=== PATIENT | male | born 1960 | race Caucasian/White ===

== ENCOUNTER 2016-06-12 09:13 | Outpatient (CLI) | payer OTHER ==
[2016-06-12] MEDS ORDERED: BUFFERED LIDOCAINE 10 ML SYRINGE IU ONE (16:31)
== END 2016-06-12 09:14 | disposition home or self-care (01) ==
DX: D44.0 Neoplasm of uncertain behavior of thyroid gland (principal)

== ENCOUNTER 2017-08-06 14:23 | Outpatient (CLI) | payer OTHER ==
--- NOTE | 2017-08-06 16:21 | Ultrasound Report ---
THYROID ULTRASOUND: 08/06/2017 CLINICAL INDICATION: Thyroid mass. COMPARISON: 04/08/2016 TECHNIQUE: Real-time scanning was performed with metals sales representative static images obtained. FINDINGS: The right lobe measures 5.2 x 1.6 x 1.4 cm, and the left lobe measures 6.8 x 3.0 x 2.8 cm. The isthmus measures 3 mm. A 4.2 x 3.9 x 2.9 cm heterogeneous nodule is again noted in the left lobe, likely not significantly changed from previous given differences in technique. Tiny cyst is incidentally noted in the right lobe. No adenopathy is seen. IMPRESSION: ALLOWING FOR DIFFERENCES IN TECHNIQUE, LIKELY NO SIGNIFICANT INTERVAL CHANGE IN SIZE OF THE HETEROGENEOUS NODULE IN THE LEFT LOBE OF THE THYROID. TD: 08/06/2017 16:20
== END 2017-08-06 14:24 | disposition home or self-care (01) ==
LOC: DI 14:23
PROVIDERS: ATTEND Family Medicine
DX: E04.9 Nontoxic goiter, unspecified (principal)
CPT/HCPCS: 76536

== ENCOUNTER 2017-12-30 20:07 | Emergency (ER) | payer OTHER ==
--- NOTE | 2017-12-30 20:22 | ED Physician Documentation ---
PD HPI CHEST PAIN - Stated complaint Stated Complaint: CP - Chief complaint Chief Complaint: Cardiac - History obtained from History obtained from: Patient PD PAST MEDICAL HISTORY - Past Medical History Cardiovascular: Arrhythmia GI: GERD Musculoskeletal: Osteoarthritis - Past Surgical History Past Surgical History: Yes General: Other - Present Medications Home Medications: Ambulatory Orders Medication Instructions Recorded Confirmed Pantoprazole [Protonix] 07/01/15 - Allergies Allergies/Adverse Reactions: Allergies Allergy/AdvReac Type Severity Reaction Status Date / Time No Known Drug Allergies Allergy Verified 12/30/17 20:15 - Social History Does the pt smoke?: No Smoking Status: Never smoker Does the pt drink ETOH?: No Does the pt have substance abuse?: No - Immunizations Immunizations are current?: Yes - POLST Patient has POLST: No Results - Vitals Vitals: Vital Signs - 24 hr 12/30/17 20:13 Temperature 36.5 C Heart Rate 86 Respiratory 16 Rate Blood Pressure 168/84 H O2 Saturation 99 Oxygen O2 Source Room air PD MEDICAL DECISION MAKING - Sepsis Event Vital Signs: Vital Signs - 24 hr 12/30/17 20:13 Temperature 36.5 C Heart Rate 86 Respiratory 16 Rate Blood Pressure 168/84 H O2 Saturation 99 Oxygen O2 Source Room air
[2017-12-30 20:42] LABS: BASOPHILS # (AUTO) 0.1 10^3/uL (0.0-0.1); BASOPHILS % (AUTO) 0.7 %; EOSINOPHILS # (AUTO) 0.1 10^3/uL (0.0-0.7); EOSINOPHILS % (AUTO) 0.8 %; HGB - HEMOGLOBIN 14.4 g/dL (14.0-18.0); LYMPHOCYTES # (AUTO) 2.8 10^3/uL (1.5-3.5); LYMPHOCYTES % (AUTO) 22.4 %; MEAN PLATELET VOLUME 7.6 fL (7.4-11.4); MONOCYTES # (AUTO) 0.7 10^3/uL (0.0-1.0); MONOCYTES % (AUTO) 5.9 %; NEUTROPHILS # (AUTO) 8.8 10^3/uL (1.5-6.6); NEUTROPHILS % (AUTO) 70.2 %; PLT - PLATELET COUNT 243 10^3/uL (130-450); RED BLOOD COUNT 4.51 10^6/uL (4.70-6.10); RED CELL DISTRIBUTION WIDTH 13.5 % (12.0-15.0); WHITE BLOOD COUNT 12.6 x10^3/uL (4.8-10.8)
[2017-12-30 20:48] LABS: PT - PROTHROMBIN TIME 11.2 secs (9.9-12.6)
[2017-12-30 20:53] LABS: ALBUMIN 4.1 g/dL (3.2-5.5); ALBUMIN/GLOBULIN RATIO 1.4 (1.0-2.2); BILIRUBIN,TOTAL 0.6 mg/dL (0.2-1.0); CALCIUM 8.5 mg/dL (8.5-10.3)
--- NOTE | 2017-12-30 20:56 | XRAY Report ---
Reason: chest pain Procedure Date: 12/30/2017 Accession Number: [id number] / [id number] Procedure: XR - Chest 1 View X-Ray CPT Code: 56001 FULL RESULT: EXAM: CHEST RADIOGRAPHY EXAM DATE: 12/30/2017 08:32 PM. CLINICAL HISTORY: Sudden sternal chest pain. COMPARISON: CHEST 2 VIEW PA/LAT 07/01/2015 2:33 AM. CHEST 2 VIEW PA/LAT 01/08/2014 9:14 AM. TECHNIQUE: 1 view. FINDINGS: Lungs/Pleura: Subcentimeter focal nodular densities in the lateral left upper lobe and right midlung, otherwise no focal opacities evident. No pleural effusion. No pneumothorax. Mediastinum: Within exam limitations, the cardiomediastinal contour is normal. Other: No bony abnormalities noted. IMPRESSION: Subcentimeter nodular densities, lateral left upper lobe and right midlung. Consider PA and lateral film. RADIA
[2017-12-30] MEDS ORDERED: ASPIRIN CHEW 81 MG TABLET PO STA (20:59)
[2017-12-30] MEDS ORDERED: HEPARIN 25000UNITS/500ML (D5W) 25,000 UNIT/500 ML BAG IV STA (21:22)
[2017-12-30] MEDS ORDERED: CLOPIDOGREL 300 MG TABLET PO STA (21:22)
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
[2017-12-30 22:54] VITALS: BP 142/80
== END 2017-12-30 22:53 | disposition short-term general hospital (02) ==
LOC: ED 20:07
DX: I21.4 Non-ST elevation (NSTEMI) myocardial infarction (principal)
CPT/HCPCS: 36415; 71045; 80053; 83690; 83880; 84484; 85025; 85610; 85730; 93005; 96374; 99284; A9270

== ENCOUNTER 2017-12-30 22:51 | Outpatient (CLI) | payer OTHER | END 2017-12-30 22:52 | disposition short-term general hospital (02) | LOC: EMS 22:51 | PROVIDERS: ATTEND Surgery | DX: R07.9 Chest pain, unspecified (principal) | CPT/HCPCS: A0170; A0425; A0426 ==

== ENCOUNTER 2018-12-15 09:14 | Outpatient (CLI) | payer OTHER ==
--- NOTE | 2018-12-16 09:14 | MRI Report ---
Reason: RT KNEE PAIN Procedure Date: 12/15/2018 Accession Number: [id number] / [id number] Procedure: MRI - Knee RT W/O CPT Code: FULL RESULT: EXAM: RIGHT KNEE MRI WITHOUT CONTRAST EXAM DATE: 12/15/2018 10:09 AM. CLINICAL HISTORY: Right knee pain. COMPARISON: KNEE RT W/O 01/27/2016 1:20 PM. TECHNIQUE: Multiplanar, multisequence T1-weighted and fluid-sensitive sequences of the knee without contrast. Other: None. FINDINGS: Bones: There is minimal subchondral marrow edema in the posterior margin of the medial tibial condyle. There are small medial and lateral compartment osteophytes. Articular Cartilage: There is grade II chondromalacia of the medial compartment, and minimal surface erosion of the lateral compartment. The patellar hyaline cartilage appears intact. There is a near full-thickness erosion of the midline of the femoral trochlea. Medial Meniscus: There is an oblique undersurface tear of the body of the medial meniscus and the posterior horn. There is truncation of the free margin of the body. Lateral Meniscus: The lateral meniscus is intact. Cruciate Ligaments: The anterior and posterior cruciate ligaments are intact. Collateral Ligaments: The medial collateral and lateral collateral ligamentous structures are intact. Tendons: The patella tendon appears unremarkable. There is mild thickening and increased T1 and T2 signal in the quadriceps tendon, suggestive of low-grade tendinosis or a prior partial-thickness tear. The finding is unchanged when compared with prior studies. The popliteus tendon is intact. Musculature: No edema or fatty atrophy. Other: There is a small joint effusion. There is a small popliteal cyst. There is mild distention of the popliteal bursa. There is mild thickening of the synovium in the suprapatellar pouch consistent with synovitis. The medial and lateral retinacula are intact. The subcutaneous tissues and fat pads are unremarkable. IMPRESSION: 1. Oblique undersurface tear of the posterior horn and body of the medial meniscus with mild medial extrusion. No change since the prior study. 2. Mild medial compartment and minimal lateral compartment osteoarthritis. No change since the prior study. 3. Near full-thickness erosion of the hyaline cartilage of the middle of the femoral trochlea. The finding was not present on the prior study. 4. Small joint effusion with distention of the popliteal bursa, and a popliteal cyst. Mild synovitis in the suprapatellar pouch. 5. Possible old low-grade partial-thickness tear of the quadriceps tendon unchanged since the prior study. RADIA
== END 2018-12-15 09:15 | disposition home or self-care (01) ==
LOC: DI 09:14
PROVIDERS: ATTEND Orthopaedic Surgery
DX: S83.241A Other tear of medial meniscus, current injury, right knee, initial encounter (principal); M17.11 Unilateral primary osteoarthritis, right knee; M25.461 Effusion, right knee; M71.21 Synovial cyst of popliteal space [Baker], right knee; M65.9 Synovitis and tenosynovitis, unspecified; M94.261 Chondromalacia, right knee

== ENCOUNTER 2019-08-11 03:13 | Emergency (ER) | payer OTHER ==
--- NOTE | 2019-08-11 03:20 | ED Physician Documentation ---
PD HPI CHEST PAIN - Stated complaint Stated Complaint: CP - History obtained from History obtained from: Patient - History of Present Illness Timing - onset: Yesterday Timing - onset during: Exertion Timing - details: Abrupt onset, Intermittant Pain level max: 4 Pain level now: 0 Quality: Tightness, Stabbing Location: Right chest Radiation: Other (across chest) Improved by: Nothing Worsened by: Other (no exacerbating factors, occurs at rest as well as with exertion) Associated symptoms: Cough. No: Shortness of air, Diaphoresis, Nausea, Feeling faint / dizzy, Palpitations Similar symptoms before: Work up / diagnostics (similar symptoms in the past with nondiagnostic test results including cardiac cath and cardiac MRI) Recently seen: Not recently seen Review of Systems Constitutional: reports: Reviewed and negative Cardiac: reports: Chest pain / pressure. denies: Palpitations, Pedal edema, Calf pain Respiratory: reports: Reviewed and negative GI: reports: Reviewed and negative PD PAST MEDICAL HISTORY - Past Medical History Cardiovascular: Arrhythmia GI: GERD Musculoskeletal: Osteoarthritis - Past Surgical History Past Surgical History: Yes General: Other - Present Medications Home Medications: Ambulatory Orders Medication Instructions Recorded Confirmed Pantoprazole [Protonix] 07/01/15 - Allergies Allergies/Adverse Reactions: Allergies Allergy/AdvReac Type Severity Reaction Status Date / Time No Known Drug Allergies Allergy Verified 12/30/17 20:15 - Social History Does the pt smoke?: No Smoking Status: Never smoker Does the pt drink ETOH?: Yes Does the pt have substance abuse?: No - Immunizations Immunizations are current?: Yes - POLST Patient has POLST: No PD ED PE NORMAL - Vitals Vital signs reviewed: Yes - General General: Alert and oriented X 3, No acute distress, Well developed/nourished - Cardiac Cardiac: RRR, No murmur, No gallop, No rub - Respiratory Respiratory: No respiratory distress, Clear bilaterally - Abdomen Abdomen: Soft, Non tender - Derm Derm: Normal color, Warm and dry - Extremities Extremities: No edema Results - Vitals Vitals: Vital Signs - 24 hr 08/11/19 08/11/19 03:15 05:00 Temperature 36.6 C Heart Rate 71 60 Respiratory 18 16 Rate Blood Pressure 155/96 H 119/74 O2 Saturation 99 96 Oxygen O2 Source Room air - EKG (time done) No standard instances Rate: Rate (enter#) (70) Rhythm: NSR [place]: Normal Intervals: Normal PA QRS: Normal Ischemia: Normal ST segments Compare to prior EKG: Unchanged from prior EKG - Labs Labs: Laboratory Tests 08/11/19 08/11/19 08/11/19 03:30 03:30 03:30 WBC 7.9 RBC 4.59 L Hgb 14.8 Hct 42.8 MCV 93.2 MCH 32.2 H MCHC 34.6 RDW 12.2 Plt Count 258 MPV 9.4 Neut # (Auto) 3.9 Lymph # (Auto) 3.0 [place] # (Auto) 0.8 Eos # (Auto) 0.1 Baso # (Auto) 0.0 Absolute Nucleated RBC 0.00 Nucleated RBC % 0.0 Sodium 138 Potassium 4.1 Chloride 101 Carbon Dioxide 25 Anion Gap 12.0 BUN 19 Creatinine 1.2 Estimated GFR (MDRD) 62 L Glucose 97 Calcium 9.5 Troponin I High Sens 7.4 - Rads (name of study) cxr Radiology: Prelim report reviewed, See rad report PD MEDICAL DECISION MAKING - ED course Complexity details: reviewed results, re-evaluated patient, considered diffe rential, d/w patient Departure - Departure Disposition: 01 Home, Self Care Clinical Impression: Chest pain Condition: Good Instructions: ED Chest Pain Atypical Unkn Cause Discharge Date/Time: 08/11/19 05:08
[2019-08-11 03:49] LABS: BASOPHILS % (AUTO) 0.5 %; EOSINOPHILS # (AUTO) 0.1 10^3/uL (0.0-0.7); EOSINOPHILS % (AUTO) 1.3 %; HGB - HEMOGLOBIN 14.8 g/dL (14.0-18.0); LYMPHOCYTES % (AUTO) 38.2 %; MEAN CORPUSCULAR HEMOGLOBIN 32.2 pg (27.0-31.0); MEAN CORPUSCULAR HGB CONC 34.6 g/dL (32.0-36.0); MEAN CORPUSCULAR VOLUME 93.2 fL (80.0-94.0); MEAN PLATELET VOLUME 9.4 fL (7.4-11.4); MONOCYTES # (AUTO) 0.8 10^3/uL (0.0-1.0); MONOCYTES % (AUTO) 9.7 %; NEUTROPHILS # (AUTO) 3.9 10^3/uL (1.5-6.6); PLT - PLATELET COUNT 258 10^3/uL (130-450); RED BLOOD COUNT 4.59 10^6/uL (4.70-6.10); RED CELL DISTRIBUTION WIDTH 12.2 % (12.0-15.0); WHITE BLOOD COUNT 7.9 x10^3/uL (4.8-10.8)
[2019-08-11 03:55] LABS: CALCIUM 9.5 mg/dL (8.5-10.3); CREATININE 1.2 mg/dL (0.6-1.2)
--- NOTE | 2019-08-11 04:10 | XRAY Report ---
Reason: chest pain Procedure Date: 08/11/2019 Accession Number: [id number] / [id number] Procedure: XR - Chest 2 View X-Ray CPT Code: 59900 Final Report FULL RESULT: EXAM: CHEST RADIOGRAPHY EXAM DATE: 08/11/2019 03:59 AM. CLINICAL HISTORY: Chest pain. COMPARISON: CHEST 1 VIEW 12/30/2017 8:32 PM. TECHNIQUE: 2 views. FINDINGS: Lungs/Pleura: No focal opacities evident. No pleural effusion. No pneumothorax. Normal volumes. Mediastinum: Heart and mediastinal contours are unremarkable. Other: None. IMPRESSION: Normal 2-view chest radiography. RADIA
[2019-08-11 05:02] VITALS: BP 119/74
== END 2019-08-11 05:08 | disposition home or self-care (01) ==
LOC: ED 03:13
DX: R07.9 Chest pain, unspecified (principal)
CPT/HCPCS: 36415; 71046; 80048; 84484; 85025; 93005; 99284

== ENCOUNTER 2019-09-16 17:54 | Emergency (ER) | payer OTHER ==
[2019-09-16] MEDS ORDERED: LIDOCAINE 2% 50 ML MDV SUBQ STA (18:23)
--- NOTE | 2019-09-16 18:30 | XRAY Report ---
PROCEDURE: Finger(s) RT INDICATIONS: Trauma TECHNIQUE: AP hand, 3 views of the right first finger(s) acquired. COMPARISON: None FINDINGS: Bones: No fractures or dislocations. No suspicious bony lesions. Soft tissues: No suspicious soft tissue calcifications. IMPRESSION: No acute radiographic findings. If pain persists, consider repeat imaging in 5-7 days. Reviewed by: Mariam Gutiérrez MD on 09/16/2019 6:29 PM PDT Approved by: Mariam Gutiérrez MD on 09/16/2019 6:29 PM PDT Station ID: [id number]
[2019-09-16] MEDS ORDERED: LIDOCAINE 1% 2 ML VIAL ONE (18:33)
--- NOTE | 2019-09-16 18:42 | ED Physician Documentation ---
PD HPI UPPER EXT INJURY - Stated complaint Stated Complaint: RT THUMB LAC - Chief complaint Chief Complaint: Laceration - History obtained from History obtained from: Patient - History of Present Illness Location: Right, Finger (Thumb) Type of injury: Laceration Where injury occurred: Home Timing - onset: How many hours ago (1) Timing - duration: Hours (1) Timing - details: Abrupt onset Pain level max: 5 Pain level now: 3 Improved by: Rest Worsened by: Moving Contributing factors: No: Anticoagulated, Prior ortho surgery, Prosthetic joint - Additonal information Additional information: Laceration to the right thumb from a grinding wheel. Last tetanus shot was 9-1/2 years ago. Patient is right-handed. Review of Systems Constitutional: denies: Fever, Chills GI: denies: Vomiting, Diarrhea Skin: denies: Rash Musculoskeletal: denies: Neck pain, Back pain Neurologic: denies: Focal weakness, Numbness, Headache PD PAST MEDICAL HISTORY - Past Medical History Cardiovascular: Arrhythmia GI: GERD Musculoskeletal: Osteoarthritis - Past Surgical History Past Surgical History: Yes General: Other - Present Medications Home Medications: Ambulatory Orders Medication Instructions Recorded Confirmed Pantoprazole [Protonix] 07/01/15 - Allergies Allergies/Adverse Reactions: Allergies Allergy/AdvReac Type Severity Reaction Status Date / Time No Known Drug Allergies Allergy Verified 09/16/19 18:01 - Social History Does the pt smoke?: No Smoking Status: Never smoker Does the pt drink ETOH?: Yes Does the pt have substance abuse?: No - Immunizations Immunizations are current?: Yes - POLST Patient has POLST: No PD ED PE NORMAL - Vitals Vital signs reviewed: Yes - General General: Alert and oriented X 3, No acute distress, Well developed/nourished - HEENT HEENT: PERRL, Moist mucous membranes - Neck Neck: Supple, no meningeal sign - Derm Derm: Warm and dry - Neuro Neuro: Alert and oriented X 3 - Psych Psych: Normal mood, Normal affect PD ED PE EXPANDED - Extremities GRACIELA UE/Hands Visual: 1 - laceration (partial thickness and through the distal nail. NVI.) Results - Vitals Vitals: Vital Signs - 24 hr 09/16/19 09/16/19 18:01 19:10 Temperature 36.9 C 36.7 C Heart Rate 93 62 Respiratory 16 17 Rate Blood Pressure 148/98 H 123/89 H O2 Saturation 98 100 Oxygen O2 Source Room air - Rads (name of study) R thumb Radiology: Prelim report reviewed, EMP read contemporaneously, See rad report ( no fractures) Procedures - Laceration (location) R thumb Length in cm: 1.5 Wound type: Linear, Clean Neurovascular status: Sensory intact, Motor intact, Vascular intact Anesthesia: Lidocaine 1% Wound Preparation: Chlorhexadine, Irrigated copiously NS Skin layer closure: Dermabond Other: Patient tolerated well, No complications Complexity: Simple PD MEDICAL DECISION MAKING - ED course Complexity details: reviewed results, re-evaluated patient, considered differential, d/w patient ED course: Laceration repaired with dermabond. NVI. No fracture. Tdap given. Warnings of infection and instructions on wound care given at bedside. Also counseled on how to minimize scarring. Patient counseled regarding signs and symptoms for which I believe and urgent re-evaluation would be necessary. Patient with good understanding of and agreement to plan and is comfortable going home at this time This document was made in part using voice recognition software. While efforts are made to proofread this document, sound alike and grammatical errors may oc cur. Departure - Departure Disposition: 01 Home, Self Care Clinical Impression: Finger laceration Qualifiers: Encounter type: initial encounter Finger: thumb Damage to nail status: with damage Foreign body presence: without foreign body Laterality: right Qualified Code(s): S61.111A - Laceration without foreign body of right thumb with damage to nail, initial encounter Condition: Good Instructions: ED Laceration Ext Skin Glue Follow-Up: SUSAN THEODORE DO [Primary Care Provider] - Within 1 week Comments: Follow-up with your doctor in about a week for a wound check. Return if you worsen. Return especially for redness, swelling or drainage from the wound. Do not apply any ointment as this may dissolve the glue. The cage around the finger will help to protect the wound while it heals. Discharge Date/Time: 09/16/19 19:10
[2019-09-16] MEDS ORDERED: TETANUS/DIPHTHERIA/PERTUSSIS 0.5 ML SYRINGE IM ONE (19:01)
[2019-09-16 19:12] VITALS: BP 123/89
== END 2019-09-16 19:10 | disposition home or self-care (01) ==
LOC: ED 17:54
DX: S61.111A Laceration without foreign body of right thumb with damage to nail, initial encounter (principal); W31.1XXA Contact with metalworking machines, initial encounter; Y93.89 Activity, other specified; Y92.008 Other place in unspecified non-institutional (private) residence as the place of occurrence of the external cause; Z23 Encounter for immunization
CPT/HCPCS: 12001; 12011; 73140; 90471; 99283; 99284

== ENCOUNTER 2023-07-18 09:43 | Outpatient (CLI) | payer OTHER ==
--- NOTE | 2023-07-18 19:11 | MRI Report ---
PROCEDURE: MRI lumbar spine without contrast INDICATIONS: LOW BACK PAIN TECHNIQUE: Multiplanar multisequential MRI images of the lumbar spine were obtained without intraven ous contrast. COMPARISON: None. FINDINGS: Alignment and Curvature: There is normal bony alignment. Bone Marrow: Marrow is of normal overall signal. No acute vertebral body compression fractures. No sacral fractures. Spinal Cord: Conus medullaris terminates at the L1 level. Visualized cord demonstrates normal signa l and size. Paraspinal Soft Tissues: Large right renal cyst measures up to 8.6 cm T12-L1: Normal in appearance. L1-L2: Disc space narrowing and posterior disc bulge present. Mild central stenosis. Moderate bila teral foraminal stenosis L2-L3: Disc space narrowing and posterior disc bulge. No central stenosis. No foraminal stenosis L3-L4: Disc space narrowing and posterior disc bulge with hypertrophic facet joints at. Moderate ri ght and mild left foraminal stenosis appear no central stenosis. L4-L5: Disc space narrowing disc bulge and hypertrophic facet joints results in mild central stenos is. Mild bilateral foraminal stenosis. L5-S1: Disc space narrowing and hypertrophic facet joints. No central stenosis. Moderate left and m ild right foraminal stenosis IMPRESSION: Multilevel degenerative disc disease and arthropathy results in varying degrees of central and forami nal stenosis including moderate foraminal stenosis L1-2, L3-4, L5-S1 Reviewed by: Diallo Harris MD on 07/18/2023 6:10 PM MOLINA Approved by: Diallo Harris MD on 07/18/2023 6:10 PM AKRUMA Station ID: [id number]
--- NOTE | 2023-07-18 21:32 | MRI Report ---
PROCEDURE: Knee RT WO INDICATIONS: KNEE PAIN TECHNIQUE: Noncontrast sagittal PD fast spin echo and T2 fast spin echo with fat saturation, sagittal 3-D gradie nt sequence with fat saturation; coronal T1 spin echo and PD fast spin echo with fat saturation, and axial PD fast spin echo with fat saturation through the knee. COMPARISON: MR right knee, 12/15/2018, 01/27/2016. FINDINGS: Image quality: Excellent. Menisci: There is oblique tear involving the posterior horn of the medial meniscus involving the intr a-articular surface. Medial and lateral menisci demonstrate normal morphology and internal signal. T he meniscal root ligaments appear intact. Cruciate ligaments: The anterior and posterior cruciate ligaments appear intact. Mild mucoid degene ration of ACL. Medial structures: The medial collateral ligament appears intact. The semimembranosus tendon insert ions and meniscocapsular junction appear intact. Visualized portions of the pes anserinus tendons ap pear normal. There is medial collateral ligament/semimembranosus bursal fluid consistent with bursiti s. Lateral structures: The lateral collateral ligament, long and short heads of the biceps femoris tend on appear intact. The popliteus tendon appears normal. Iliotibial band appears normal. Anterior structures: The quadriceps and patellar tendons appear intact. Low-grade quadriceps tendini tis and patellar tendinitis. Patellar alignment is normal. No femoral trochlear dysplasia or ventral trochlear prominence. No edema in the infrapatellar fat pad. Bones and cartilage: No bone marrow contusions or fractures. There is tricompartmental cartilage fib rillation. There is focal full-thickness in thickness cartilage defect in the medial femoral trochlea . Joint space: There is small knee joint fluid. No Garcia's cyst. Normal appearing synovial plicae ar e incidentally noted. IMPRESSION: 1. Oblique tear of the posterior horn the medial meniscus. 2. Mild mucoid degeneration of ACL. 3. Medial bursitis. 4. Focal full-thickness cartilage defect in the medial femoral trochlear superimposed on tricompartme ntal cartilage fibrillation and mild cartilage thinning the medial femorotibial compartment. 5. Small knee joint effusion. Reviewed by: Kyle Ball MD on 07/18/2023 9:31 PM PDT Approved by: Kyle Ball MD on 07/18/2023 9:31 PM PDT Station ID: [id number]
== END 2023-07-18 09:44 | disposition home or self-care (01) ==
LOC: DI 09:43
PROVIDERS: ATTEND Nurse Practitioner Family
DX: S83.241A Other tear of medial meniscus, current injury, right knee, initial encounter (principal); M23.8X1 Other internal derangements of right knee; M70.51 Other bursitis of knee, right knee; M94.261 Chondromalacia, right knee; M25.461 Effusion, right knee; M47.26 Other spondylosis with radiculopathy, lumbar region; M47.27 Other spondylosis with radiculopathy, lumbosacral region; M51.16 Intervertebral disc disorders with radiculopathy, lumbar region; M48.061 Spinal stenosis, lumbar region without neurogenic claudication; M51.17 Intervertebral disc disorders with radiculopathy, lumbosacral region; M48.07 Spinal stenosis, lumbosacral region

== ENCOUNTER 2023-08-05 09:28 | Outpatient (CLI) | payer OTHER ==
--- NOTE | 2023-08-06 00:18 | XRAY Report ---
PROCEDURE: Lumbar Spine 4V INDICATIONS: LUMBAR RADICULOPATHY TECHNIQUE: 3 view(s) of the lumbar spine were acquired. COMPARISON: None. FINDINGS: Bones: Vertebral body height and alignment is maintained. No suspicious bony lesions. Disc space jung rowing and anterior osteophytes with hypertrophic facet joints noted throughout the exam particularly lower lumbar spine Mild grade 1 retrolisthesis noted at the L1-2 and L2-3 without change between flexion and extension Soft tissues: Overlying bowel gas pattern is normal. No suspicious soft tissue calcifications. IMPRESSION: Degenerative disc disease and arthropathy throughout the exam particularly lower lumbar spine. Grade 1 fixed retrolisthesis L1-2 and L2-3. No instability Reviewed by: Diallo Harris MD on 08/05/2023 11:16 PM AKRUMA Approved by: Diallo Harris MD on 08/05/2023 11:16 PM AKRUMA Station ID: [id number]
== END 2023-08-05 09:29 | disposition home or self-care (01) ==
LOC: DI 09:28
PROVIDERS: ATTEND Neurological Surgery
DX: M47.816 Spondylosis without myelopathy or radiculopathy, lumbar region (principal); M51.36 Other intervertebral disc degeneration, lumbar region; M43.16 Spondylolisthesis, lumbar region

== ENCOUNTER 2023-09-08 14:53 | Outpatient (CLI) | payer OTHER ==
--- NOTE | 2023-09-08 16:35 | CT Report ---
PROCEDURE: Soft Tissue Neck W INDICATIONS: NECK MASS CONTRAST: Omni 300 100ml TECHNIQUE: After the administration of intravenous contrast, 3.0 mm axial sections acquired from the sella to th e aortic arch. Additional oblique axial 3.0 mm sections acquired through the pharynx. 3 mm thick co jeanne reformats were generated. For radiation dose reduction, the following was used: automated exp osure control, adjustment of mA and/or kV according to patient size. COMPARISON: None. FINDINGS: Image quality: Excellent. Lymph nodes: No enlarged lymph nodes seen throughout the neck. Vessels: Visualized vasculature appears patent. Neck spaces: The oropharynx, nasopharynx, and pharynx demonstrate no mucosal lesions. The vocal cor ds, false vocal cords, pyriform sinuses, epiglottis, vallecula, and tongue base all appear normal. E xtramucosal spaces appear unremarkable. Glands: The parotid and submandibular glands appear normal. Enlargement of the left lobe of the thy roid gland with nodules measuring up to 3 cm. Miscellaneous: Visualized brain and orbits appear normal. Lung apices appear clear. Left upper lobe calcified granuloma. Superficial soft tissues appear normal. Bones: No suspicious bony lesions. Degenerative changes of the spine. Visualized sinuses and mastoid s appear unremarkable. IMPRESSION: 1.No neck masses or enlarged cervical lymph nodes. 2.Thyroid nodules measuring up to 3 cm. Recommend dedicated thyroid ultrasound if not previously obta ined. Reviewed by: Doc Doss MD on 09/08/2023 4:34 PM PDT Approved by: Doc Doss MD on 09/08/2023 4:34 PM PDT Station ID: [id number]
[2023-09-08] MEDS: iohexoL-300 100 ML VIAL IVP ONE (17:17)
== END 2023-09-08 14:54 | disposition home or self-care (01) ==
LOC: LAB 14:53
PROVIDERS: ATTEND Specialist
DX: Z01.812 Encounter for preprocedural laboratory examination (principal); E04.2 Nontoxic multinodular goiter
CPT/HCPCS: 36415; 70491; 82565; Q9967

== ENCOUNTER 2023-10-29 11:40 | Outpatient (CLI) | payer OTHER ==
--- NOTE | 2023-10-29 13:59 | Ultrasound Report ---
PROCEDURE: Soft Tissue Head or Neck INDICATIONS: THYROID NODULE TECHNIQUE: Real-time scanning was performed of the thyroid gland, with image documentation. COMPARISON: 08/06/2017 FINDINGS: Right: Thyroid lobe measures 5.1 x 1.6 x 1.1 cm. Left: Thyroid lobe measures 6.8 x 2.9 x 3.3 cm Isthmus: 0.9 cm thick. Echotexture: Heterogeneous. Nodule number: One Location: Mid to lower pole left thyroid lobe Size: 3.9 x 2.8 x 4.3 cm. Previously measures 3.9 x 2.9 x 4.2 cm in size. Composition: Predominantly solid. Echogenicity: Isoechoic (1 point). Shape: wider than tall (0 points). Margins: Smooth (0 points). Echogenic foci: None (0 points). Total points: 3 ACR TI-RADS category: TI-RADS 3: Mildly suspicious. IMPRESSION: Stable size of patient's known mildly suspicious mid to lower pole left thyroid lobe nod ule. Please correlate with previous fine-needle aspiration result. Continued ultrasound follow-up is recommended. No thyroid nodule is seen. ACR TI-RADS definitions and recommendations: TI-RADS 1 (benign): 0 points. FNA not needed. TI-RADS 2 (not suspicious): 2 points. FNA not needed. TI-RADS 3 (mildly suspicious): 3 points. "FNA if 2.5 cm or larger, follow up if 1.5 cm or larger (at 1, 3, and 5 years). TI-RADS 4 (moderately suspicious): 4-6 points. "FNA if 1.5 cm or larger, follow up if 1 cm or larger (at 1, 2, 3, and 5 years). TI-RADS 5 (highly suspicious): 7 points or more. "FNA if 1 cm or larger, follow up if 0.5 cm or larger (every year for 5 years). Reviewed by: Ross Hope MD on 10/29/2023 1:58 PM PDT Approved by: Ross Hope MD on 10/29/2023 1:58 PM PDT Station ID: [id number]
== END 2023-10-29 11:41 | disposition home or self-care (01) ==
LOC: DI 11:40
PROVIDERS: ATTEND Specialist
DX: E04.1 Nontoxic single thyroid nodule (principal)